=== PATIENT | female | born 1965 | race Caucasian/White ===

== ENCOUNTER 2025-06-15 20:18 | Emergency (ER) | payer BC ==
[2025-06-15] MEDS ORDERED: Acetaminophen 325 MG TAB ONE (20:56)
[2025-06-15] MEDS ORDERED: Bacitracin 1 PK ONE (20:56)
== END 2025-06-15 21:05 | disposition home or self-care (01) ==
LOC: BURERS 20:18
DX: S01.01XA Laceration without foreign body of scalp, initial encounter (principal); E78.00 Pure hypercholesterolemia, unspecified; W22.8XXA Striking against or struck by other objects, initial encounter; Y93.89 Activity, other specified; Z79.899 Other long term (current) drug therapy
CPT/HCPCS: 99282